=== PATIENT | male | born 1980 | race Two or more races ===

== ENCOUNTER 2018-09-04 18:43 | Emergency (ER) | payer MEDICAID ==
[~2018-09-04] VITALS: Ht 180.3 cm; Wt 95.7 kg
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
[2018-09-04] MEDS ORDERED: ACETAMINOPHEN ES 500 MG TABLET PO ONE (19:30)
[2018-09-04] MEDS ORDERED: ACETAMINOPHEN ES 500 MG TABLET ONE (19:34)
--- NOTE | 2018-09-04 20:03 | NUR ---
AAKASH PEREZ AT BEDSIDE FOR SUTURE APPLICATION
[2018-09-04] MEDS ORDERED: LIDOCAINE HCL/MPF 1% 30 ML VIAL IJ ONE (20:06)
--- NOTE | 2018-09-04 21:31 | NUR ---
PROVIDED WOUND CARE AND Patient discharged to home in stable condition. Written and verbal after care instructions given. Patient verbalizes understanding of instruction.
[2018-09-04 22:20] VITALS: BP 138/76
== END 2018-09-04 21:30 | disposition home or self-care (01) ==
LOC: ER 18:53
DX: S61.411A Laceration without foreign body of right hand, initial encounter (principal); S09.8XXA Other specified injuries of head, initial encounter; F15.10 Other stimulant abuse, uncomplicated; Y04.0XXA Assault by unarmed brawl or fight, initial encounter; Y93.89 Activity, other specified; Y92.89 Other specified places as the place of occurrence of the external cause; Y99.8 Other external cause status
CPT/HCPCS: 12002; 99283; A4606; A6402 ×2; J3490